=== PATIENT | male | born 1955 | race Caucasian/White ===

== ENCOUNTER 2017-02-13 06:46 | Day surgery (SDC) | payer BC ==
[~2017-02-13] VITALS: Ht 176.5 cm; Wt 81.2 kg
[~2017-02-13 06:46] MED LIST: LISI-127 PO; PANT20TA13 PO; RANI-45 PO
[2017-02-13 06:59] VITALS: Ht 176.5 cm; Wt 81.2 kg
[2017-02-13 07:00] VITALS: BP 130/71; PULSE 56; RESP 16; TEMP 97.6; O2SAT 96
[2017-02-13] MEDS ORDERED: LIDOCAINE 1% (10mg/ml) 2ml SDV INJ ONE (07:00)
[2017-02-13] MEDS ORDERED: LR 1,000 ML IV SCH (07:00)
--- NOTE | 2017-02-13 07:17 | ANESPREOP ---
Anesthesia Record Date and Time DATE: 02/13/17 TIME: 07:16 Proposed Surgical Procedure COLONOSCOPY NPO since: 2100 Allergies: Coded Allergies: No Known Allergies (Unverified , 02/10/17) Ht/Wt/BMI Height: 5 ' 9.50 " Weight: 81.200 kg BMI: 26.1 kg/m2 Medications Inpatient Medications Current Medications Medications (Trade) Dose Ordered Sig/[place] Start Time Stop Time Status Last Admin Dose Admin Lactated Ringer's (Lactated Ringers) 1,000 ml @ 50 mls/hr Q20H 02/13/17 07:00 Lisinopril (Lisinopril) 10 Mg Tablet, 0.5 MG PO BID, (Reported) Pantoprazole Sodium (Pantoprazole Sodium) 20 Mg Tablet.dr, 1 TAB PO DAILY, ( Reported) Ranitidine Hcl (Zantac) 150 Mg Tablet, 150 MG PO DAILY, (Reported) Currently on Beta Sophie: No Medical/Surgical History Anesthesia PMH: Reports: *Hypertension (CONTROLLED WITH MEDS), Arthritis, 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 smoked today?: No Use Chewing Tobacco?: No Substance Use Type: does not use Alcohol Intake: none Past Surgical History Orthopedic Surgeries: Abdominal Surgeries: Yes - APPY Genitourinary Surgeries: Cardiac Surgeries: Endocrine Surgeries: Reproductive Surgeries: Neurological Surgeries: Ear Surgeries: Nose Surgeries: Throat Surgeries: Other Surgeries: Yes - CYST ON A NERVE REMOVED IN 1977, WISDOM TEETH, SKIN CANCER REMOVED Anesthesia Adverse Reactions: FOUND none Family Hx of Anesthesia Advers: none Hx of Motion Sickness: No Physical Exam Respiratory: Bilat breath sounds equal, Lungs clear Cardiovascular: FOUND Regular rate, rhythm Airway Assessment Mallampati Score: I TMD: 3 Fingerbreadths Neck Extension: Good Overall Assessment: No Airway Concerns ASA: 2 Plan Anesthesia Plan: TIVA, LMA, GETA Discussion Discussed risks/options/alternatives of anesthesia and questions answered. Patient consents. Nursing pain assessment noted. Attestation Statement Prior to the delivery of any anesthetic medication, I examined the patient, developed the plan, obtained the patient's consent and discussed the risk and benefits of the procedure with the patient/guardian. KAUR MEDEROS CRNA February 13, 2017 07:17
[2017-02-13] MEDS ORDERED: FAMOTIDINE 20 MG in NORMAL SALINE 50 ML IV ONE (07:30)
[2017-02-13] MEDS ORDERED: PROPOFOL 500mg 50 ML IV ONE (07:44)
[2017-02-13 08:29] VITALS: BP 121/65; PULSE 59; RESP 18; TEMP 97.2; O2SAT 97
--- NOTE | 2017-02-13 08:34 | ANESPO ---
Post-Op Note Date 02/13/17 Time: 08:34 Status Pt Participated in Evaluation: Pt participated in person Respiratory Function: Airway patent, Regular respirations Cardiovascular Function: Regular pulse Mental Status: Alert/oriented Pain Level Intensity: 0 Hydration: IV infusing Complications during Recovery None apparent Follow-Up Instructions Instructions Per Surgeon KAUR MEDEROS CRNA February 13, 2017 08:34
[2017-02-13 08:39] VITALS: BP 115/64; PULSE 56; RESP 17; O2SAT 97
[2017-02-13 08:49] VITALS: BP 124/70; PULSE 56; RESP 20; O2SAT 98
[2017-02-13 08:59] VITALS: BP 131/75; PULSE 52; RESP 22; O2SAT 99
[2017-02-13 09:08] VITALS: BP 134/78; PULSE 52; RESP 20; O2SAT 100
--- NOTE | 2017-02-13 10:59 | OPNOTEF ---
DATE OF OPERATION 02/13/2017 PREOPERATIVE DIAGNOSIS Screening colonoscopy POSTOPERATIVE DIAGNOSIS Screening colonoscopy, within normal limits. OPERATION Colonoscopy. SURGEON Jamar Stinson M.D. ANESTHESIA TIVA DESCRIPTION OF OPERATIVE PROCEDURE The patient was prepped with Colyte the evening prior to the procedure. He was placed in the left lateral position. After a benign digital rectal exam, the colonoscope was inserted and advanced to the cecum with cecal landmarks identified. The cecum, ascending colon, transverse colon and sigmoid showed no evidence of hemorrhage, mass lesions, ulcerations, polyps or diverticular disease. No significant inflammatory changes were noted. The rectum and anus were clear. The colon was suctioned. The scope removed with patient tolerating the procedure well. Follow up colonoscopy recommended in 10 years or sooner as indicated clinically. YVETTE
== END 2017-02-13 09:20 | disposition home or self-care (01) ==
LOC: NSC 06:46
DX: Z12.11 Encounter for screening for malignant neoplasm of colon (principal); K21.9 Gastro-esophageal reflux disease without esophagitis; I10 Essential (primary) hypertension; E66.3 Overweight; Z68.26 Body mass index [BMI] 26.0-26.9, adult; E78.00 Pure hypercholesterolemia, unspecified; J30.9 Allergic rhinitis, unspecified; Z79.899 Other long term (current) drug therapy
CPT/HCPCS: 45378; J2704; J7050; J7120